=== PATIENT | female | born 1990 | race African-American/Black ===

== ENCOUNTER 2019-01-10 01:44 | Emergency (ER) | payer MEDICAID, OTHER ==
[~2019-01-10] VITALS: Ht 157.5 cm; Wt 57.0 kg
[~2019-01-10 01:44] MED LIST: [UNRECOGNIZED DRUG - OTHER]
[2019-01-10] MEDS ORDERED: ONDANSETRON HCL 4MG/2ML INJ IV STA (02:33)
[2019-01-10] MEDS ORDERED: MORPHINE SULFATE 4 MG/ML CPJ (NOT FOR IM USE) IV STA (02:33)
[2019-01-10] MEDS ORDERED: SODIUM CHLORIDE 0.9% 1,000 ML IV ONE (02:33)
[2019-01-10 04:30] VITALS: BP 106/59
== END 2019-01-10 04:35 | disposition home or self-care (01) ==
LOC: ER 01:44
DX: T62.91XA Toxic effect of unspecified noxious substance eaten as food, accidental (unintentional), initial encounter (principal); Y92.89 Other specified places as the place of occurrence of the external cause
CPT/HCPCS: 96361; 96374; 96375; 99284; J2270; J2405; J7030

== ENCOUNTER 2019-05-11 10:54 | Emergency (ER) | payer OTHER ==
[~2019-05-11] VITALS: Ht 157.5 cm; Wt 57.0 kg
[2019-05-11 11:44] VITALS: BP 131/88
== END 2019-05-11 14:31 | disposition left against medical advice (07) ==
LOC: ER 10:54
DX: Z53.21 Procedure and treatment not carried out due to patient leaving prior to being seen by health care provider (principal)

== ENCOUNTER 2020-08-05 06:11 | Emergency (ER) | payer BC, OTHER ==
[~2020-08-05] VITALS: Ht 157.5 cm; Wt 58.0 kg
[2020-08-05] MEDS ORDERED: ONDANSETRON HCL 4MG/2ML INJ IV ONE (07:00)
[2020-08-05] MEDS ORDERED: MORPHINE SULFATE 4 MG/ML CPJ (NOT FOR IM USE) IV ONE (07:00)
[2020-08-05 08:29] LABS: BASOPHILS % 0.1 % (0.0-2.0); HEMATOCRIT. 36.3 % (36.0-48.0); HEMOGLOBIN. 12.7 g/dL (12.0-16.0); LYMPHOCYTES % 7.1 % (20.0-50.0); MEAN CORPUSCULAR HEMOGLOBIN 34.3 pg (28.0-32.0); MEAN CORPUSCULAR VOLUME 98.3 fL (81.0-99.0); MEAN PLATELET VOLUME 8.9 fl (7.4-10.4); MONOCYTES % 3.3 % (2.0-8.0); NEUTROPHILS % 89.5 % (40.0-76.0); PLATELET 218 x1000/uL (130-400); RED BLOOD CELL COUNT 3.69 mill/uL (4.2-5.4); RED CELL DISTRIBUTION WIDTH 12.3 % (11.6-14.6)
[2020-08-05 08:36] LABS: CHLORIDE 105 mEq/L (98-107)
[2020-08-05 08:39] LABS: PROTHROMBIN TIME 11.1 sec (9.6-11.0)
[2020-08-05 11:17] LABS: CLARITY URINE CLEAR (CLEAR); COLOR URINE YELLOW (YELLOW); KETONES URINE NEGATIVE (NEGATIVE); LEUKOCYTE ESTERASE URINE NEGATIVE (NEGATIVE); NITRITE URINE NEGATIVE (NEGATIVE); OCCULT BLOOD URINE NEGATIVE (NEGATIVE); PH URINE 6.5 (4.5-8.0); PROTEIN URINE NEGATIVE (NEGATIVE); SPECIFIC GRAVITY URINE 1.025 (1.005-1.030); UROBILINOGEN URINE 0.2 E.U./dL (0.2-1.0)
[2020-08-05] MEDS ORDERED: KETOROLAC 15MG/ML VIAL IV ONE (13:00)
[2020-08-05 13:38] VITALS: BP 112/86
== END 2020-08-05 13:39 | disposition home or self-care (01) ==
LOC: ER 06:11
DX: R10.30 Lower abdominal pain, unspecified (principal); R11.2 Nausea with vomiting, unspecified
CPT/HCPCS: 36415; 76830; 76856; 80053; 81003; 81025; 83690; 85025; 85610; 96374; 96375; 99285; J1885; J2270; J2405; Z7610

== ENCOUNTER 2021-10-28 00:39 | Emergency (ER) | payer MEDICAID ==
[~2021-10-28] VITALS: Ht 157.5 cm; Wt 64.0 kg
[2021-10-28] MEDS ORDERED: ONDANSETRON HCL 4MG/2ML INJ IV STA (03:01)
[2021-10-28] MEDS ORDERED: KETOROLAC 30MG/ML VIAL IV STA (03:01)
[2021-10-28] MEDS ORDERED: SODIUM CHLORIDE 0.9% 1,000 ML IV ONE (03:15)
[2021-10-28 03:48] LABS: HEMATOCRIT. 37.5 % (36.0-48.0); HEMOGLOBIN. 12.8 g/dL (12.0-16.0); MEAN CORPUSCULAR HEMOGLOBIN 32.7 pg (28.0-32.0); MEAN PLATELET VOLUME 8.9 fl (7.4-10.4); PLATELET 215 x1000/uL (130-400); RED BLOOD CELL COUNT 3.91 mill/uL (4.2-5.4); RED CELL DISTRIBUTION WIDTH 13.5 % (11.6-14.6)
[2021-10-28 03:54] LABS: CLARITY URINE CLEAR (CLEAR); COLOR URINE YELLOW (YELLOW); KETONES URINE NEGATIVE (NEGATIVE); LEUKOCYTE ESTERASE URINE TRACE (NEGATIVE); NITRITE URINE NEGATIVE (NEGATIVE); OCCULT BLOOD URINE 2+ (NEGATIVE); PH URINE 5.5 (4.5-8.0); PROTEIN URINE NEGATIVE (NEGATIVE); SPECIFIC GRAVITY URINE 1.028 (1.005-1.030); UROBILINOGEN URINE 0.2 E.U./dL (0.2-1.0)
[2021-10-28 03:57] LABS: CHLORIDE 107 mEq/L (98-107)
[2021-10-28 04:05] LABS: ETHANOL BLOOD < 10 mg/dL
[2021-10-28 04:12] LABS: *AMPHETAMINES SCREEN URINE NEGATIVE (NEGATIVE); *BARBITURATES SCREEN URINE NEGATIVE (NEGATIVE); *BENZODIAZEPINES SCREEN URINE NEGATIVE (NEGATIVE); *COCAINE SCREEN URINE NEGATIVE (NEGATIVE); METHADONE URINE SCREEN NEGATIVE (NEGATIVE); OPIATES URINE SCREEN NEGATIVE (NEGATIVE); PHENCYCLIDINE URINE SCREEN NEGATIVE (NEGATIVE)
[2021-10-28 04:17] LABS: CANNABINOID URINE SCREEN PRESUMTIVE POSITIVE (NEGATIVE)
[2021-10-28] MEDS ORDERED: CEPH500C2 MT (04:21)
[2021-10-28] MEDS ORDERED: HALOPERIDOL LACTATE 5MG/ML VIAL IM NR (04:30)
[2021-10-28 04:43] LABS: PLATELET ESTIMATE NORMAL
[2021-10-28 04:45] VITALS: BP 102/62
== END 2021-10-28 04:50 | disposition home or self-care (01) ==
LOC: ER 00:39
DX: N39.0 Urinary tract infection, site not specified (principal); F12.10 Cannabis abuse, uncomplicated
CPT/HCPCS: 36415; 80053; 80305; 80320; 81003; 81025; 83690; 85025; 96361; 96374; 96375; 99284; J1885; J2405; J7030; G0480